=== PATIENT | female | born 1990 | race African-American/Black ===

== ENCOUNTER 2017-01-07 17:55 | Emergency (ER) | payer OTHER ==
[~2017-01-07 17:55] MED LIST: ERYT.5%O LEFT EYE; Z.0.NO CURRENT MEDS
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
== END 2017-01-07 21:05 | disposition home or self-care (01) ==
LOC: HOBED 17:55
DX: Z04.1 Encounter for examination and observation following transport accident (principal); Z3A.27 27 weeks gestation of pregnancy; V43.52XA Car driver injured in collision with other type car in traffic accident, initial encounter; Y92.414 Local residential or business street as the place of occurrence of the external cause
CPT/HCPCS: 99281

== ENCOUNTER 2017-01-09 19:31 | Emergency (ER) | payer OTHER ==
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
== END 2017-01-10 00:27 | disposition home or self-care (01) ==
LOC: HOBED 19:31
DX: O26.853 Spotting complicating pregnancy, third trimester (principal); Z3A.28 28 weeks gestation of pregnancy
CPT/HCPCS: 99283